=== PATIENT | male | born 1990 | race Hispanic/Latino ===

== ENCOUNTER 2022-04-06 08:17 | Emergency (ER) | payer BC, OTHER ==
[~2022-04-06] VITALS: Ht 177.8 cm; Wt 122.5 kg
[2022-04-06 08:23] VITALS: BP 123/67
[2022-04-06] MEDS ORDERED: IBUP-2070 PO (08:56)
[2022-04-06] MEDS ORDERED: ACETAMINOPHEN 500 MG TABLET PO ONE (09:00)
[2022-04-06] MEDS ORDERED: IBUPROFEN 600 MG TABLET PO ONE (09:00)
== END 2022-04-06 09:03 | disposition home or self-care (01) ==
LOC: EDH 08:17
DX: S62.633A Displaced fracture of distal phalanx of left middle finger, initial encounter for closed fracture (principal); X58.XXXA Exposure to other specified factors, initial encounter; Y93.89 Activity, other specified; Y92.89 Other specified places as the place of occurrence of the external cause; Y99.8 Other external cause status
CPT/HCPCS: 29130; 73140